=== PATIENT | male | born 1995 | race Caucasian/White ===

== ENCOUNTER 2016-10-06 15:42 | Emergency (ER) | payer MEDICAID, OTHER ==
[~2016-10-06] VITALS: Ht 170.2 cm; Wt 61.4 kg
[2016-10-06 15:41] VITALS: BP 131/69; PULSE 96; RESP 16; O2SAT 100
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
[2016-10-06] MEDS ORDERED: Ketorolac 30 mg/mL 2 mL Inj IM ONE (17:30)
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
[2016-10-06] MEDS ORDERED: 0.9% Sodium Chloride 1,000 ML IV ONE (17:40)
[2016-10-06] MEDS ORDERED: HYDROmorphone 1 mg/mL Inj IVPUSH PRN (17:40)
[2016-10-06] MEDS ORDERED: Ondansetron 2 mg/mL 2 mL Inj IVPUSH ONE (17:40)
[2016-10-06 18:12] LABS: BASOPHILS % (AUTO) 0.1 % (0-3); EOSINOPHILS % (AUTO) 0.1 % (0-5); MONOCYTES % (AUTO) 7.1 % (4-12); Mean Corpuscular Hemoglobin 30.7 pg (27.0-35.0); Mean Corpuscular Volume 90.1 fL (81-100); NEUTROPHILS % (AUTO) 82.8 % (40-74); Platelet Count 256 bil/L (150-400)
--- NOTE | 2016-10-06 18:28 | DRSVH ---
PROCEDURE: X-RAY CHEST ONE VIEW, PORTABLE ([id number]) INDICATIONS: cp TECHNIQUE: One view of the chest was acquired. COMPARISON: None. FINDINGS: Surgical changes and devices: None. Lungs and pleura: No pleural effusions or pneumothorax. Lungs are clear. Mediastinum: Mediastinal contours appear normal. Heart size is normal. Bones and chest wall: No suspicious bony lesions. Overlying soft tissues appear unremarkable. IMPRESSION: No acute cardiopulmonary findings. Dictated by: Mayra Guido M.D. on 10/06/2016 at 18:26 Approved by: Mayra Guido M.D. on 10/06/2016 at 18:27
[2016-10-06] MEDS ORDERED: TdaP Vaccine 0.5 mL Inj IM ONE ×2 (18:32→18:35)
[2016-10-06 18:40] VITALS: BP 141/71; PULSE 116; RESP 18; O2SAT 100
[2016-10-06 18:40] LABS: INR 0.95 ratio
== END 2016-10-06 18:42 | disposition short-term general hospital (02) ==
LOC: EDBD 15:42 → SED 15:42
DX: S12.100A Unspecified displaced fracture of second cervical vertebra, initial encounter for closed fracture (principal); V48.5XXA Car driver injured in noncollision transport accident in traffic accident, initial encounter; Y93.89 Activity, other specified; Y92.411 Interstate highway as the place of occurrence of the external cause; Y99.8 Other external cause status; F17.200 Nicotine dependence, unspecified, uncomplicated; Z23 Encounter for immunization
CPT/HCPCS: 70450; 71010; 72125; 80053; 83690; 85025; 85610; 90471; 90715; 96361; 96372; 96374; 96375; 99285; J1170; J1885; J2405; J7030